=== PATIENT | male | born 1945 | race Caucasian/White ===

== ENCOUNTER 2019-12-27 06:57 | Outpatient (CLI) | payer MEDICARE, SELFPAY ==
--- NOTE | 2019-12-27 08:30 | CT_ITS ---
WS: [id number] CT CHEST TECHNIQUE: Noncontrast CT of the chest with coronal and sagittal reformatted images. CLINICAL INFORMATION: multiple pulmonary nodules COMPARISON: May 17, 2019 DLP: 547.[address] scans at [facility] use at least one of these dose optimization techniques: automat ed exposure control; mA and/or kV adjustment per patient size (includes targeted exams where dose is matched to clinical indication); or iterative reconstruction. FINDINGS: Again seen are several noncalcified pulmonary nodules the largest in the right lower lobe laterally m easuring 5 mm. This is unchanged. Additional smaller satellite nodule measuring 3 mm. Additional tiny noncalcified nodules in the right upper lobe measuring 3 mm. A few stable subpleural nodules in the left upper lobe. Pleural plaques. Calcified granuloma left lower lobe. Tiny noncalcified right hilar nodule and left upper lobe nodule. 7 mm low-attenuation left thyroid nodule. Calcified right hilar no de. Adrenal glands are normal. Splenic granulomas. Cholecystectomy clips. Small esophageal hiatal hernia. CT/CT chest wo con [id number] IMPRESSION: 1. Multiple stable noncalcified pulmonary nodules the largest in the right low er lobe laterally measuring 5 mm. Recommend 12 month follow-up. 2. Subpleural nodules and pleural plaques in the left upper lobe are stable. 3. No mediastinal or hilar lymphadenopathy. 4. Mild chronic emphysematous changes. 5. Cholecystectomy clips. 6. Stable 7 mm left thyroid nodule.
--- NOTE | 2019-12-27 10:15 | US_ITS ---
WS: [id number] ULTRASOUND THYROID TECHNIQUE: Ultrasound of the thyroid. CLINICAL INFORMATION: left thyroid nodule COMPARISON: None. FINDINGS: Thyroid: Right and left thyroid lobes are normal in size and echotexture. Complex cystic and solid nodule left thyroid measuring 1.9 x 1.1 x 1.2 CM. Associated vascularity. A few Incidental tiny hypoechoic likely cystic nodules right thyroid. Right thyroid lobe: 4.7 cm x 1.4 cm x 1.4 cm Left thyroid lobe: 4.6 cm x 1.7 cm x 2.1 cm. Isthmus: 0.4 mm. Cervical lymphadenopathy: None. US/US thyroid 67740 IMPRESSION: 1. Complex 1.9 x 1.1 x 1.2 cm left thyroid nodule with vascularity. Recommend further evaluation with FNA.
== END 2019-12-27 06:58 | disposition home or self-care (01) ==
LOC: CT 07:07
PROVIDERS: Family Provider Family Medicine; PCP Family Medicine; Visit Provider Family Medicine
DX: J43.9 Emphysema, unspecified (principal); E04.1 Nontoxic single thyroid nodule; R91.8 Other nonspecific abnormal finding of lung field
CPT/HCPCS: 71250; 76536

== ENCOUNTER 2020-03-27 20:03 | Emergency (ER) | payer MEDICARE, SELFPAY ==
[2020-03-27 20:15] VITALS: BP 158/87; PULSE 69; RESP 20; TEMP 36.8; O2SAT 96; BMI 21.5
--- NOTE | 2020-03-27 20:30 | ED_ITS ---
HPI - Male Genitourinary General: Chief complaint: General Medical Stated complaint: groin pain Time Seen by Provider: 03/27/20 20:15 Source: patient Mode of arrival: ambulatory Limitations: no limitations History of Present Illness: HPI Narrative: Patient is a very nice 74-year-old gentleman who presents to ED today with a complaint of left groin pain over the past 4 to 5 days. He states pain seems to be getting progressively worse. States last night he was barely able to sleep due to discomfort. Patient tells me he is not having any urinary symptoms. When asked he does complain of some left testicular pain but has not noticed any swelling or redness. He states pain does not seem to move down into his lower extremity and has not noticed any color or temperature changes there. He is not having any numbness/tingling/changes in sensation of his lower extremity. Patient has been told previously he has bilateral inguinal hernias. He has not noticed any masses/bulges to the area. Has not noticed any overlying redness or heat. He has no abdominal pain, nausea, vomiting, changes in bowel movements. He is still passing gas. Associated symptoms: Deny dysuria, nausea, urinary incontinence or vomiting Review of Systems General: Reports: 10 or more systems reviewed and unremarkable except in HPI and below Const: Denies: fever(s) or chills Card: Denies: chest pain Resp: Denies: dyspnea GI: Reports: abdominal pain (L groin pain) and other (pt still passing gas); Denies: nausea, vomiting, diarrhea, constipation, change in bowel habits, change in stool character, hematochezia or melena : Reports: testicular pain (left); Denies: flank pain, difficulty urinating, dysuria, urinary frequency, urinary urgency, urinary hesitancy, urinary incontinence, genital lesions, penile discharge, testicular mass or scrotal swelling Musc: Denies: neck pain, back pain, extremity pain, extremity swelling, joint pain, joint swelling, joint redness, joint warmth, muscle cramps, muscle weakness or decrease in muscle mass Skin/Breast: Denies: rash Neuro: Denies: numbness in extremities, weakness in extremities or sensory changes PFS ED PFSH: Medical History (Updated 03/27/20 @ 23:13 by CAROLINE Szymanski) Bilateral inguinal hernia GERD (gastroesophageal reflux disease) Hiatal hernia Pulmonary nodules/lesions, multiple Thyroid nodule Surgical History (Updated 12/13/19 @ 10:17 by Callie Phoenix DO) History of cholecystectomy Family History Other Diabetes Social History Smoking and tobacco status: never smoked Alcohol intake: current Alcohol intake frequency: holidays/special occasions only Physical Exam 2 Const: COMMON NORMALS: no acute distress, average body habitus, patient oriented x3, no limitations, healthy appearing, alert and well nourished Resp: COMMON NORMALS: normal respiratory effort and clear to auscultation bilaterally AUSCULTATION: clear to auscultation bilaterally Cardio: COMMON NORMALS: regular rate and regular rhythm RATE: regular rate RHYTHM: regular rhythm GI: COMMON NORMALS: Normal to inspection, nondistended, normoactive bowel sounds present, Soft to palpation and No hepatosplenomegaly present AUSCULTATION: Yes normoactive bowel sounds PALPATION: Yes Soft to palpation, Yes Tenderness to palpation present (GI) (TTP L groin) and Yes No hepatosplenomegaly present OTHER: does appear to have mild swelling just medial to groin consistent with inguinal hernia; this does not seem to worsen with valsalva but does seem to increase with pt standing; no peritonitis; no overlying redness/warm; L testicle is tender to palpation but no redness, warmth, or swelling appreciated : COMMON NORMALS: Yes no CVA tenderness BLADDER/KIDNEY EXAM: Yes no CVA tenderness Back/Pelvis: COMMON NORMALS: no CVA tenderness Extremity: COMMON NORMALS: normal to inspection, full ROM, capillary refill normal, no joint enlargement, no clubbing, cyanosis or edema and no calf tenderness NARRATIVE EXTREMITY EXAM: pts sensory to L LE is intact; femoral/DP/PT pulses intact and equal bilaterally; extremities are equal temp and color GENERAL: Yes normal exam except as noted Neuro: COMMON NORMALS: patient oriented x3 SENSORIUM/ORIENTATION: Yes alert Skin: COMMON NORMALS: no rashes or lesions noted GENERAL SKIN EXAM: no rashes or lesions noted Course Vital Signs: Vital signs: Vital Signs Temperature 98.3 F 03/27/20 20:15 Pulse Rate 67 03/27/20 22:29 Respiratory Rate 18 03/27/20 22:29 Blood Pressure 134/72 03/27/20 22:29 Pulse Oximetry 98 03/27/20 22:29 MDM - Male MDM Narrative: Medical decision making narrative: pt with L inguinal hernia; there is no evidence at this time for incarcerated or strangulated bowel; pts white count and lactate are normal; normal vitals; he is defecating and passing gas normally; will have CM set him up with general surgery this week for discussion on elective repair; strict return to ED precautions given regarding re-evaluation for worsening pain or obstructive symptoms Lab Data: Labs: Lab Results 03/27/20 03/27/20 03/27/20 Range/Units 20:45 20:45 20:45 WBC 4.5 (4.0-10.0) 10^3/ uL RBC 4.47 (4.1-5.3) 10^6/u L Hgb 14.5 (11.7-16.6) g/dL Hct 43.9 (42.0-52.0) % MCV 98.2 H (80-94) fL MCH 32.4 (28.0-34.0) pg MCHC 33.0 (30.0-36.0) g/dL RDW 13.5 (12.1-15.1) % Plt Count 204 (130-400) 10^3/c mm MPV 9.2 (7.4-10.4) fL Neut % (Auto) 59.4 % Lymph % (Auto) 26.8 % [place] % (Auto) 8.8 % Eos % (Auto) 4.4 % Baso % (Auto) 0.4 % Neut # (Auto) 2.7 (1.8-7.7) 10^3/u L Lymph # (Auto) 1.2 (0.8-4.8) 10^3/u L [place] # (Auto) 0.4 (0.2-0.9) 10^3/u L Eos # (Auto) 0.2 (0.0-0.8) 10^3/u L Baso # (Auto) 0.0 (0.0-0.1) 10^3/u L Nucleated RBC % (a uto) 0 % Nucleated RBCs # 0.0 /100WBC Sodium 139 (136-145) mmol/L Potassium 4.6 (3.5-5.1) mmol/L Chloride 103 (98-107) mmol/L Carbon Dioxide 24 (22-29) mmol/L Anion Gap 16.6 (5-19) BUN 22 (8-23) mg/dL Creatinine 1.2 (0.7-1.2) mg/dL Glucose 107 (65-115) mg/dL Calculated Osmolal ity 285 (285-295) mOsm/k g Lactate 1.0 (0.5-2.2) mmol/L Calcium 9.9 (8.5-10.5) mg/dL Total Bilirubin 0.5 (0.15-1.2) mg/dL AST 27 (0-40) U/L ALT 30 (0-41) U/L Alkaline Phosphata se 73 (40-130) IU/L Total Protein 7.1 (6.6-8.7) g/dL Albumin 4.2 (3.5-5.2) g/dL Globulin 2.9 (1.3-4.6) g/dL Imaging Data: US scrotum : Radiologist's impression: [place] [address] Ultrasound Report Signed Patient: Mickey Camacho Unit #: [id number] : 1945 Age/Sex: 74 / M ADM Date: 03/27/20 Loc: ER Room/Bed: Attending Dr: Ordering Provider/Ordering MD: Eliana Swann Date of Service: 03/27/20 Procedure(s): US scrotum [id number] Accession Number(s): [id number] Report Number: [id number] PROCEDURE INFORMATION: Exam: US Scrotum Exam date and time: 03/27/2020 9:36 PM Age: 74 years old Clinical indication: Groin pain and scrotum pain; Additional info: L testicular pain/l groin pain TECHNIQUE: Imaging protocol: Real-time ultrasound of the scrotum and contents with color Doppler and image documentation. COMPARISON: No relevant prior studies available. FINDINGS: Right testicle: Normal. No mass. No torsion. Normal vascular flow. Left testicle: Normal. No mass. No torsion. Normal vascular flow. Epididymides: Normal. Scrotum: Small left varicocele. Other findings: Left inguinal canal appears to contain some herniated bowel with some surrounding fluid without dilation. US/US scrotum [id number] IMPRESSION: 1. Testicles appear within normal limits bilaterally. 2. Small left varicocele. 3. Left inguinal canal appears to contain some herniated bowel with some surrounding fluid without dilation. Dictated By: Kirt Gonzalez MD Signed By: Kirt Gonzalez MD Signed Date/Time: 03/27/202147 DD/ 47 CT Abd/Pel: Radiologist's impression: [place] [address] CT Scan Report Signed Patient: Mickey Camacho Unit #: [id number] : 1945 Age/Sex: 74 / M ADM Date: 03/27/20 Loc: ER Room/Bed: Attending Dr: Ordering Provider/Ordering MD: Eliana Swann Date of Service: 03/27/20 Procedure(s): CT abdomen pelvis w con* [id number] Accession Number(s): [id number] Report Number: [id number] PROCEDURE INFORMATION: Exam: CT Abdomen And Pelvis With Contrast Exam date and time: 03/27/2020 9:16 PM Age: 74 years old Clinical indication: Abdominal pain; Localized; Other: Left groin; Prior surgery; Surgery type: Gb; Additional info: L inguinal pain/hernia TECHNIQUE: Imaging protocol: Computed tomography of the abdomen and pelvis with intravenous contrast. Radiation optimization: All CT scans at this facility use at least one of these dose optimization techniques: automated exposure control; mA and/or kV adjustment per patient size (includes targeted exams where dose is matched to clinical indication); or iterative reconstruction. Contrast material: VISI 320; Contrast volume: 95 ml; Contrast route: INTRAVENOUS (IV); COMPARISON: No relevant prior studies available. RADIATION DOSE METRICS: Total DLP (mGy-cm): 602.25 FINDINGS: Left lower lobe benign calcified granuloma Liver: Normal. No mass. Gallbladder and bile ducts: Cholecystectomy. Pancreas: Normal. No ductal dilation. Spleen: Normal. No splenomegaly. Adrenals: Normal. No mass. Kidneys and ureters: Left kidney benign cyst, negative for follow-up. Stomach and bowel: Constipation. Appendix: No evidence of appendicitis. Intraperitoneal space: Unremarkable. No free air. No significant fluid collection. Vasculature: Unremarkable. No abdominal aortic aneurysm. Lymph nodes: Unremarkable. No enlarged lymph nodes. Bladder: Unremarkable as visualized. Reproductive: Prostate gland enlarged. Bones/joints: Unremarkable. No acute fracture. Soft tissues: Unremarkable. CT/CT abdomen pelvis w con* [id number] IMPRESSION: 1. Negative for acute inflammatory process in the abdomen or pelvis 2. Cholecystectomy. 3. Constipation. 4. Prostate gland enlarged. 5. Left kidney benign cyst, negative for follow-up. Radiation Dose CTDIVOL = (mGy): DLP = 602.25 (mGy-cm) Dictated By: Kirt Gonzalez MD Signed By: Kirt Gonzalez MD Signed Date/Time: 03/27/202248 DD/ 46 Discharge Plan Discharge Patient Disposition: Home, Self-Care Clinical Impression: Inguinal hernia, left Condition: Stable Prescriptions: New hydrocodone-acetaminophen 5-325 mg tablet 1 tab PO Q6H PRN (Reason: pain) Qty: 14 RF: 0 No Action famotidine [Pepcid] 20 mg tablet 20 mg PO DAILY RF: 0 Multiple Vitamins Tablet 1 tab PO DAILY RF: 0 Calcium 500 500 mg calcium (1,250 mg) Tablet 500 mg PO DAILY RF: 0 magnesium 200 mg Tablet 200 mg PO DAILY RF: 0 Discharge Orders: Discharge Order (Routine); Ordered 03/27/20 Ordered By: Eliana Swann Referrals: Supriya Torres DO [Primary Care Provider] - Patient Instructions: Inguinal Hernia, Inguinal Hernia (ED) Activity Restrictions/Additional Instructions: As discussed case management will contact you tomorrow to set you up with an appointment for general surgery. Please return to the emergency department for worsening pain, inability to have a bowel movement or pass gas, vomiting, fe vers, or any other concerns you may have. 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
[2020-03-27 20:57] LABS: Basophils % 0.4 %; Eosinophils # 0.2 10^3/uL (0.0-0.8); Eosinophils % 4.4 %; Hematocrit 43.9 % (42.0-52.0); Hemoglobin 14.5 g/dL (11.7-16.6); Lymphocytes # 1.2 10^3/uL (0.8-4.8); Lymphocytes % 26.8 %; Mean Corpuscular Hemoglobin 32.4 pg (28.0-34.0); Mean Corpuscular Volume 98.2 fL (80-94); Mean Platelet Volume 9.2 fL (7.4-10.4); Monocytes # 0.4 10^3/uL (0.2-0.9); Monocytes % 8.8 %; Neutrophils # 2.7 10^3/uL (1.8-7.7); Neutrophils % 59.4 %; Nucleated Red Blood Cells % 0 %; Platelet Count 204 10^3/cmm (130-400); Red Blood Count 4.47 10^6/uL (4.1-5.3); Red Cell Distribution Width 13.5 % (12.1-15.1); White Blood Count 4.5 10^3/uL (4.0-10.0)
[2020-03-27 21:13] LABS: Alanine Aminotransferase 30 U/L (0-41); Albumin Level 4.2 g/dL (3.5-5.2); Alkaline Phosphatase 73 IU/L (40-130); Anion Gap 16.6 (5-19); Aspartate Amino Transferase 27 U/L (0-40); Blood Urea Nitrogen 22 mg/dL (8-23); Calcium 9.9 mg/dL (8.5-10.5); Carbon Dioxide 24 mmol/L (22-29); Chloride 103 mmol/L (98-107); Globulin 2.9 g/dL (1.3-4.6); Glucose 107 mg/dL (65-115); Osmolality Calculated 285 mOsm/kg (285-295); Potassium 4.6 mmol/L (3.5-5.1); Sodium 139 mmol/L (136-145); Total Bilirubin 0.5 mg/dL (0.15-1.2); Total Protein 7.1 g/dL (6.6-8.7)
[2020-03-27] MEDS: iodixanol 320 mg/mL 100mL Btl IV (22:22)
[2020-03-27 22:29] VITALS: BP 134/72; PULSE 67; RESP 18; O2SAT 98
[2020-03-28] MEDS: HYDROcodone-acetaminophen 5-325 mg Tablet 1 TAB PO (00:36)
--- NOTE | 2020-03-28 00:36 | PC.NURSE ---
Med given for Pt. to take home per provider request
[2020-03-28 00:37] VITALS: BP 138/81; PULSE 82; RESP 18; O2SAT 95
--- NOTE | 2020-03-28 10:57 | DCPLANNER ---
renewals manager had message to schedule a follow up appointment for patient with general surgery. renewals manager called [facility], spoke with Kait, gave clinic patients information. renewals manager was told that patients information would be printed and reviewed. Clinic will call patient with appointment information.
--- NOTE | 2020-03-29 08:56 | DCPLANNER ---
Patient had an appointment scheduled for 03.28.20 with [facility], patient did attend the appointment.
== END 2020-03-28 00:40 | disposition home or self-care (01) ==
PROVIDERS: Emergency Provider Physician Assistant; PCP Family Medicine
DX: K40.90 Unilateral inguinal hernia, without obstruction or gangrene, not specified as recurrent (principal)
CPT/HCPCS: 12345; 36415; 74177; 76870; 80053; 83605; 85025; 96374; 96375; 99281; 99282; 99283; J2060; J2270; Q9967

== ENCOUNTER 2020-03-28 03:54 | Emergency (ER) | payer MEDICARE, SELFPAY ==
[2020-03-28 04:39] VITALS: BP 129/81; PULSE 72; RESP 16; TEMP 36.6; O2SAT 97; BMI 22.1
[2020-03-28 04:49] VITALS: BP 134/79; PULSE 70; RESP 16; O2SAT 95
--- NOTE | 2020-03-28 04:54 | W.ED.GENADLT ---
HPI - General Adult General: Chief complaint: General Medical Stated complaint: groin pain Time Seen by Provider: 03/28/20 04:53 Source: patient Mode of arrival: ambulatory Limitations: no limitations History of Present Illness: HPI narrative: 74-year-old male who was seen earlier today and diagnosed with a left inguinal hernia. He states he had pain for 2 days pain got worse after he left here. He states his pain is currently a 6 out of 10. He states worse with palpation. Patient denies any vomiting or fevers. CT scan of his abdomen earlier was normal. Associated symptoms: Deny chest pain, dyspnea, headache(s) or rash Review of Systems Const: Denies: fever(s), chills, body aches or change in appetite Eyes: Denies: blurry vision or eye discomfort ENMT: Denies: throat pain or dental pain Card: Denies: chest pain Resp: Denies: dyspnea GI: Reports: abdominal pain : Denies: dysuria Musc: Denies: neck pain or back pain Skin/Breast: Denies: rash Neuro: Denies: headache(s) Psych: Denies: depression Tone/Lymph: Denies: easy bruising All/Imm: Denies: urticaria PFSH ED PFSH: Medical History Bilateral inguinal hernia GERD (gastroesophageal reflux disease) Hiatal hernia Pulmonary nodules/lesions, multiple Thyroid nodule Surgical History History of cholecystectomy Family History Other Diabetes Social History Smoking and tobacco status: never smoked Alcohol intake: current Alcohol intake frequency: holidays/special occasions only Physical Exam Const: COMMON NORMALS: no acute distress, patient oriented x3 and healthy appearing HENMT: COMMON NORMALS: normocephalic and atraumatic HEAD & SCALP: normocephalic and atraumatic Eye: COMMON NORMALS: Equal, round and reactive pupils present and EOMs intact bilaterally PUPIL: Yes Equal, round and reactive pupils present Neck/C-Spine: COMMON NORMALS: full ROM and supple Chest: COMMONS NORMALS: normal inspection of the chest and normal palpation of entire chest wall Resp: COMMON NORMALS: normal respiratory effort, No retractions, No use of accessory muscles and clear to auscultation bilaterally AUSCULTATION: clear to auscultation bilaterally Cardio: COMMON NORMALS: regular rate, regular rhythm and No murmurs present (Cardio) RATE: regular rate RHYTHM: regular rhythm GI: COMMON NORMALS: Normal to inspection, nondistended, normoactive bowel sounds present, Soft to palpation, non-tender and no masses PALPATION: Yes Soft to palpation : OTHER: hernia to left inguinal with tenderness Extremity: COMMON NORMALS: normal to inspection and full ROM Neuro: COMMON NORMALS: patient oriented x3, moves all extremities and no focal motor deficits Psych: COMMON NORMALS: mental status grossly normal, Normal thought process present and cooperative THOUGHT PROCESS: Normal thought process present Skin: COMMON NORMALS: no rashes or lesions noted and no wounds GENERAL SKIN EXAM: no rashes or lesions noted Course Vital Signs: Vital signs: Vital Signs Temperature 97.8 F 03/28/20 04:39 Pulse Rate 70 03/28/20 04:49 Respiratory Rate 20 H 03/28/20 05:09 Blood Pressure 134/79 03/28/20 04:49 Pulse Oximetry 95 03/28/20 04:49 MDM - General Adult MDM Narrative: Medical decision making narrative: Patient presents with inguinal hernia that is able to reduce. Patient has no abdominal tenderness and no signs of incarceration. Patient's white count is normal. I spoke to surgeon on-call Dr. Garcia recommended follow-up with him later today and will set up follow-up. Patient is stable for discharge and return to ER if worsening. He understands and agrees to plan. Lab Data: Labs: Lab Results 03/28/20 03/28/20 Range/Units 05:00 05:00 WBC 5.7 (4.0-10.0) 10^3/ uL RBC 4.48 (4.1-5.3) 10^6/u L Hgb 14.7 (11.7-16.6) g/dL Hct 43.2 (42.0-52.0) % MCV 96.4 H (80-94) fL MCH 32.8 (28.0-34.0) pg MCHC 34.0 (30.0-36.0) g/dL RDW 13.5 (12.1-15.1) % Plt Count 200 (130-400) 10^3/c mm MPV 9.3 (7.4-10.4) fL Neut % (Auto) 75.2 % Lymph % (Auto) 14.7 % [place] % (Auto) 8.1 % Eos % (Auto) 1.6 % Baso % (Auto) 0.2 % Neut # (Auto) 4.3 (1.8-7.7) 10^3/u L Lymph # (Auto) 0.8 (0.8-4.8) 10^3/u L [place] # (Auto) 0.5 (0.2-0.9) 10^3/u L Eos # (Auto) 0.1 (0.0-0.8) 10^3/u L Baso # (Auto) 0.0 (0.0-0.1) 10^3/u L Nucleated RBC % (a uto) 0 % Nucleated RBCs # 0.0 /100WBC Sodium 140 (136-145) mmol/L Potassium 4.3 (3.5-5.1) mmol/L Chloride 105 (98-107) mmol/L Carbon Dioxide 23 (22-29) mmol/L Anion Gap 16.3 (5-19) BUN 23 (8-23) mg/dL Creatinine 0.9 (0.7-1.2) mg/dL Glucose 104 (65-115) mg/dL Calculated Osmolal ity 287 (285-295) mOsm/k g Calcium 9.9 (8.5-10.5) mg/dL Total Bilirubin 0.7 (0.15-1.2) mg/dL AST 24 (0-40) U/L ALT 28 (0-41) U/L Alkaline Phosphata se 66 (40-130) IU/L Total Protein 6.7 (6.6-8.7) g/dL Albumin 4.3 (3.5-5.2) g/dL Globulin 2.4 (1.3-4.6) g/dL Discharge Plan Discharge Patient Disposition: Home, Self-Care Clinical Impression: Inguinal hernia, left Condition: Stable Prescriptions: No Action famotidine [Pepcid] 20 mg tablet 20 mg PO DAILY RF: 0 Multiple Vitamins Tablet 1 tab PO DAILY RF: 0 Calcium 500 500 mg calcium (1,250 mg) Tablet 500 mg PO DAILY RF: 0 magnesium 200 mg Tablet 200 mg PO DAILY RF: 0 hydrocodone-acetaminophen 5-325 mg tablet 1 tab PO Q6H PRN (Reason: pain) Qty: 14 RF: 0 Discharge Orders: Discharge Order (Routine); Ordered 03/28/20 Ordered By: Jeniffer Naranjo Referrals: Khurram Garcia MD [Physician] - 1-3 days Callie Phoenix DO [Primary Care Provider] - Discharge Diet: Advance as tolerated Discharge Activity: Resume usual activity Patient Instructions: Inguinal Hernia (ED) Coding Level of Care Code ED Community Service Director for Chg Fwd Exam Comprehensive
--- NOTE | 2020-03-28 05:04 | PC.NURSE ---
Pain located in groin area, very tender in his testicles
[2020-03-28 05:09] VITALS: RESP 20
[2020-03-28] MEDS: morphine 4 mg/mL SDV 1 mL IVP (05:09)
[2020-03-28] MEDS: LORazepam 2 mg/mL INJ 1 mL 1 MG IVP (05:10)
[2020-03-28 05:17] LABS: Basophils % 0.2 %; Eosinophils # 0.1 10^3/uL (0.0-0.8); Eosinophils % 1.6 %; Hematocrit 43.2 % (42.0-52.0); Hemoglobin 14.7 g/dL (11.7-16.6); Lymphocytes # 0.8 10^3/uL (0.8-4.8); Lymphocytes % 14.7 %; Mean Corpuscular Hemoglobin 32.8 pg (28.0-34.0); Mean Corpuscular Volume 96.4 fL (80-94); Mean Platelet Volume 9.3 fL (7.4-10.4); Monocytes # 0.5 10^3/uL (0.2-0.9); Monocytes % 8.1 %; Neutrophils # 4.3 10^3/uL (1.8-7.7); Neutrophils % 75.2 %; Nucleated Red Blood Cells % 0 %; Platelet Count 200 10^3/cmm (130-400); Red Blood Count 4.48 10^6/uL (4.1-5.3); Red Cell Distribution Width 13.5 % (12.1-15.1); White Blood Count 5.7 10^3/uL (4.0-10.0)
[2020-03-28 05:40] LABS: Alanine Aminotransferase 28 U/L (0-41); Albumin Level 4.3 g/dL (3.5-5.2); Alkaline Phosphatase 66 IU/L (40-130); Anion Gap 16.3 (5-19); Aspartate Amino Transferase 24 U/L (0-40); Blood Urea Nitrogen 23 mg/dL (8-23); Calcium 9.9 mg/dL (8.5-10.5); Carbon Dioxide 23 mmol/L (22-29); Chloride 105 mmol/L (98-107); Creatinine Clr Calc Pharmacy 70.9251; Globulin 2.4 g/dL (1.3-4.6); Glucose 104 mg/dL (65-115); Osmolality Calculated 287 mOsm/kg (285-295); Potassium 4.3 mmol/L (3.5-5.1); Sodium 140 mmol/L (136-145); Total Bilirubin 0.7 mg/dL (0.15-1.2); Total Protein 6.7 g/dL (6.6-8.7)
[2020-03-28 06:02] VITALS: BP 118/69; PULSE 65; RESP 16; TEMP 36.6; O2SAT 95
--- NOTE | 2020-03-29 10:51 | DCPLANNER ---
late entry - hospice case manager had message to schedule a follow up appointment for patient with general surgery. gas well drilling manager called [facility], spoke with Kait, gave clinic patients appointment information. gas well drilling manager was told that patients information would be printed and reviewed. Patient had an appointment on 03.28.20, patient did attend the appointment.
== END 2020-03-28 06:05 | disposition home or self-care (01) ==
PROVIDERS: Emergency Provider Emergency Medicine; PCP Family Medicine
DX: K40.90 Unilateral inguinal hernia, without obstruction or gangrene, not specified as recurrent (principal)
CPT/HCPCS: 12345; 80053; 85025; 96374; 96375; 99282; 99283; J2060; J2270

== ENCOUNTER 2020-03-29 05:50 | Day surgery (SDC) | payer MEDICARE, SELFPAY ==
[2020-03-28 14:26] VITALS: BMI 22.1
[2020-03-29] VITALS (9 sets, daily range): BP systolic 133–157; BP diastolic 69–89; PULSE 64–71; RESP 13–19; TEMP 36.3–36.8; O2SAT 94–100
[2020-03-29] MEDS: sodium chloride 0.9% 1,000 ML 30 ML IV (06:22)
--- NOTE | 2020-03-29 06:23 | ECG_ITS ---
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 Measurements Intervals Sikes Rate: 65 P: 66 W[place]: 185 QRS: 46 QRSD: 93 T: 46 QT: 399 QTc: 417 Interpretive Statements SINUS RHYTHM Compared to ECG 12/08/2016 23:26:58 No significant changes Electronically Signed On 03-29-2020 17:12:27 CDT by Lynsey Hernandez M.D. [email or web address]
--- NOTE | 2020-03-29 06:45 | ANES.PREANE2 ---
Pre-Anesthetic Assessment Pre-Anesthetic Assessment: Height/Weight: Height 1.75 m Weight 68.039 kg Temp Pulse Resp BP Pulse Ox 98.1 F 67 18 134/77 96 03/29/20 06:16 03/29/20 06:16 03/29/20 06:16 03/29/20 06:16 03/29/20 06:16 Preop Diagnosis: Left inguinal hernia Proposed Procedure: Operation Date: 03/29/20 07:00 Proposed Procedures p Laparoscopic Inguinal Hernia Repair/possible open 80677 K40.90(Left) - Khurram Garcia MD Familial anesthetic complications: None Was Beta Diana taken within 24 hours: N/A Last intake: Intake Last Liquid Date 03/29/20 Last Liquid Time 01:00 Last Solid Date 03/28/20 Last Solid Time 15:00 Social: Social History: No alcohol and No tobacco Exam: Pre-Anes Outpt Exam: alert, oriented x 3, clear to auscultation bilaterally and regular rate & rhythm Airway: Cervical ROM: WNL MP: 2 Dentition: False Pulmonary: Pulmonary: None reported CV/HEM: CV/HEM: None reported : : None reported Hepatic: Hepatic: None reported GI: GI: GERD and Hiatus hernia Metabolic: Metabolic: Thyroid (nodule) Musc/skel: Musc/skel: None reported Neuropsych: Neuropsych: None reported Anesthetic Plan: ASA status: 2 Anesthesia: General Risk of > 500 ml blood loss (7ml/kg in children): No Meds/Allergies Current Medications: Current Medications Generic Name Dose Route Start Last Admin Trade Name Freq PRN Reason Stop Dose Admin Sodium Chloride 1,000 mls @ 30 ml s/hr 03/29/20 06:00 03/29/20 06:22 Sodium Chloride 0.9% IV 03/30/20 05:59 30 mls/hr .Q24H DIONI Administration PFSH Anesthesia PFSH: Medical History GERD (gastroesophageal reflux disease) Hiatal hernia Pulmonary nodules/lesions, multiple Thyroid nodule Surgical History H/O circumcision H/O oral surgery History of cholecystectomy Family History Other Diabetes Denies family history of Anesthesia complication Bleeding disorder Social History Smoking and tobacco status: never smoked Alcohol intake: current Alcohol intake frequency: holidays/special occasions only Household members: spouse Marital status: Current occupational status: employed History of recent travel: No Data Anesthesia Cardiac Studies: No Data to Display
--- NOTE | 2020-03-29 06:52 | W.PM.OPSUD ---
Surgery/Procedure H&P Update DATE OF PROCEDURE: March 29, 2020 DATE H&P PERFORMED: 03/28/20 H&P UPDATE INFORMATION: I have reviewed H&P completed within last 30 days, I have examined patient prior to procedure and No changes to prior documentation PREOP DIAGNOSIS: Left inguinal hernia PLANNED PROCEDURE: Operation Date: 03/29/20 07:00 Proposed Procedures p Laparoscopic Inguinal Hernia Repair/possible open 67822 K40.90(Left) - Khurram Garcia MD
--- NOTE | 2020-03-29 08:05 | P.OP_ITS ---
Operative Report Date of procedure: March 29, 2020 Pre-op Diagnosis: Left inguinal hernia Post-op Diagnosis: Left reducible indirect inguinal hernia Procedure Done: Laparoscopic total extraperitoneal repair of left inguinal hernia with ultraPro 15 x 10 cm mesh Specimens removed/disposition: None Pathology: none sent Surgeon: Khurram Garcia Anesthesia: General Estimated blood loss (mL): 10 Condition: stable Disposition: PACU Procedure: The patient was taken to the operating room. After IV antibiotic was administered, the abdomen was prepped and draped in a sterile manner. Using a 15 blade, a 1.0 cm transverse incision was made infraumbilically on the left side. Subcutaneous tissue was divided using electrocautery and the anterior rectus sheath divided using an 11 blade. The rectus muscle was retracted laterally and the extraperitoneal space identified. A 11 mm port was placed and 12 mm of pneumoperitoneum was created. A 10 mm 30? scope was introduced and the retrorectus space was opened using the camera up to the pubic symphysis and 5 mm ports were placed in the midline, one 2-fingerbreadths above the pubic symphysis and the other midway between these two ports under direct visualization. Blunt dissection was carried out to open up the tissue in the midline and to the pubic symphysis, which was identified. The dissection was then carried laterally whe re the iliopubic tract was identified. There was no femoral, obturator or direct hernia noted. The inferior epigastric artery was identified and dissection was carried posterior to it and laterally, the space was opened up to the level of the umbilicus superior to the anterior superior iliac spine. I then proceeded to dissect out the spermatic cord and the indirect hernial sac was reduced . 15 x 10cm Ultrapro mesh was rolled and introduced through the 10 mm port and then rolled laterally and apposed well against the abdominal wall to cover the myopectineal orifice completely. 10 Cc of 0.5% Marcaine was infiltrated into the preperitoneal space. The extraperitoneal space was desufflated under direct visualization to ensure no slippage of hernial sac under the mesh. All ports were removed, the anterior rectus fascia at the infraumbilical port closed using figure of eight 0 Vicryl sutures, subcutaneous tissue approximated using 3-0 Vicryl sutures and skin at all three port sites were closed using running subcuticular 4-0 Monocryl sutures and Dermabond. 10 mL of 0.5% Marcaine was infiltrated at the port sites. The patient was stable throughout the procedure.
--- NOTE | 2020-03-29 08:19 | SUR.PHASEI ---
0814 PATIENT TO PACU FROM OR. RR EVEN AND UNLABORED. PLACED ON SIMPLE MASK AT 8L, SPO2 100%. INCISIONS TO ABDOMEN, CDI CLOSED WITH EXOFIN. SCROTAL SUPPORT IN PLACE.
[2020-03-29] MEDS: fentaNYL 50 mcg/mL INJ 2mL IVP (08:22)
--- NOTE | 2020-03-29 08:40 | SUR.PHASEI ---
0837 PATIENT TO OPS AT THIS TIME. DENIES NAUSEA, TOLERATING ICE CHIPS. INCISIONS TO ABDOMEN, CDI.
[2020-03-29] MEDS: HYDROcodone-acetaminophen 5-325 mg Tablet 1 TAB PO (08:55)
== END 2020-03-29 09:20 | disposition home or self-care (01) ==
PROVIDERS: PCP Family Medicine; Visit Provider Surgery
PROC: (CPT 49650; principal; 2020-03-29 07:00)
DX: K46.9 Unspecified abdominal hernia without obstruction or gangrene (principal); K21.9 Gastro-esophageal reflux disease without esophagitis
CPT/HCPCS: 49650; 12345; 93005; J0690; J2704; J3010; J3490; J7030

== ENCOUNTER → 2020-05-05 08:36 | Outpatient (BNVA) | payer MEDICARE, SELFPAY | PROVIDERS: PCP Family Medicine; Visit Provider Internal Medicine | DX: E04.1 Nontoxic single thyroid nodule (principal) | CPT/HCPCS: 36415; 84439; 84443; 99203 ==

== ENCOUNTER 2020-05-05 10:07 | Outpatient (CLI) | payer MEDICARE, SELFPAY ==
[2020-05-05 14:01] LABS: Thyroid Stimulating Hormone 3.41 uIU/mL (0.27-4.20)
== END 2020-05-05 10:08 | disposition home or self-care (01) ==
LOC: LAB 10:11
PROVIDERS: PCP Family Medicine; Visit Provider Internal Medicine
DX: E04.1 Nontoxic single thyroid nodule (principal)
CPT/HCPCS: 36415; 84439; 84443

== ENCOUNTER → 2020-06-05 09:40 | Outpatient (BNVA) | payer MEDICARE, SELFPAY | PROVIDERS: PCP Family Medicine; Visit Provider Internal Medicine | DX: E04.1 Nontoxic single thyroid nodule (principal); R91.8 Other nonspecific abnormal finding of lung field | CPT/HCPCS: 99214 ==

== ENCOUNTER → 2020-12-04 08:09 | Outpatient (BNVA) | payer MEDICARE, SELFPAY | PROVIDERS: PCP Family Medicine; Visit Provider Internal Medicine | DX: E04.1 Nontoxic single thyroid nodule (principal) | CPT/HCPCS: 99214 ==

== ENCOUNTER 2020-12-27 08:12 | Outpatient (CLI) | payer MEDICARE, SELFPAY ==
--- NOTE | 2020-12-27 11:30 | CT_ITS ---
WS: [id number] CT CHEST TECHNIQUE: Noncontrast CT of the chest with coronal and sagittal reformatted images. CLINICAL INFORMATION: f/u pulmonary nodules COMPARISON: CT December 27, 2019 DLP: 742.[address] scans at [facility] use at least one of these dose optimization techniques: automat ed exposure control; mA and/or kV adjustment per patient size (includes targeted exams where dose is matched to clinical indication); or iterative reconstruction. FINDINGS: Again seen are several noncalcified pulmonary nodules the largest in the right lower lobe laterally m easuring 5 mm. These are unchanged since December 27, 2019 Additional smaller satellite nodule measuring 3 mm is stable. Additional tiny noncalcified nodule in the right upper lobe measuring 3 mm. A few stable subpleural nodules in the left upper lobe. Associated Pleural plaques. Calcified granulo ma left lower lobe. 7 mm low-attenuation left thyroid nodule. No mediastinal or hilar lymphadenopathy. No axillary lymphadenopathy. Adrenal glands are normal. Sple treasure granulomas. Cholecystectomy clips. Small esophageal hiatal hernia. CT/CT chest wo con [id number] IMPRESSION: 1. Multiple stable noncalcified pulmonary nodules the largest in the right lowe r lobe laterally measuring 5 mm. Recommend 12 month follow-up. 2. Subpleural nodules and pleural plaques in the left upper lobe are stable. 3. No mediastinal or hilar lymphadenopathy. 4. Stable 7 mm left thyroid nodule.
== END 2020-12-27 08:13 | disposition home or self-care (01) ==
LOC: RADWPI 08:25
PROVIDERS: PCP Family Medicine; Visit Provider Family Medicine
DX: R91.8 Other nonspecific abnormal finding of lung field (principal); E04.1 Nontoxic single thyroid nodule
CPT/HCPCS: 71250

== ENCOUNTER → 2021-01-16 07:13 | Outpatient (BNVA) | payer MEDICARE, SELFPAY | PROVIDERS: PCP Family Medicine; Visit Provider Family Medicine | DX: Z13.6 Encounter for screening for cardiovascular disorders (principal); Z00.00 Encounter for general adult medical examination without abnormal findings; R35.1 Nocturia | CPT/HCPCS: 80053; 80061; 84153; 85025 ==

== ENCOUNTER → 2021-12-03 08:23 | Outpatient (BNVA) | payer MEDICARE, SELFPAY | PROVIDERS: PCP Family Medicine; Visit Provider Internal Medicine | DX: E04.1 Nontoxic single thyroid nodule (principal) | CPT/HCPCS: 99213; 99214 ==

== ENCOUNTER → 2022-01-07 09:18 | Outpatient (BNVA) | payer MEDICARE, SELFPAY | PROVIDERS: PCP Family Medicine; Visit Provider Family Medicine | DX: R35.1 Nocturia (principal); Z13.6 Encounter for screening for cardiovascular disorders | CPT/HCPCS: 80053; 80061; 84153; 85025 ==

== ENCOUNTER 2022-01-28 08:18 | Outpatient (CLI) | payer MEDICARE, SELFPAY ==
--- NOTE | 2022-01-28 09:00 | CT_ITS ---
WS: [id number] CT CHEST WITHOUT INTRAVENOUS CONTRAST HISTORY: pulmonary nodule TECHNIQUE: Contiguous 5 mm axial imaging performed on the thorax. Coronal and sagittal reformats are submitted. All CT scans at [facility] use at least one of these dose optimization techniques: automated exposure control; mA and/or kV adjustment per patient size (includes targeted exams where dose is matched to clinical indication); or iterative reconstruction. CONTRAST: None DLP: 799.50 mGy.cm COMPARISON: 12/27/2020, 05/28/2020 and 05/17/2019 Lungs and central airway: Lungs are hyperexpanded. Numerous bilateral calcified and noncalcified pulm onary nodules are reidentified. The largest noncalcified nodule in the RIGHT lower lobe measures 5 mm and stable since at least 05/17/2019. There are no new or increasing noncalcified pulmonary nodules. Pleura: Again noted is the pleural thickening and calcification in the LEFT upper lobe which is stabl e. Heart and pericardium: Normal size heart with no pericardial effusion. Mediastinum and rachael: No mediastinum or hilar adenopathy. Vessels: Normal size pulmonary artery. There are a few scattered calcifications in the qawalangin coronar y arteries. Mild ectasia thoracic aorta. Chest wall and lower neck: Slight increase in size of the LEFT inferior thyroid nodule now 11 mm. Thi s nodule was previously evaluated for possible biopsy. Biopsy not performed due to the marked increas ed vascularity. Nodule remains suspicious due to its solid appearance. Upper abdomen: Prior cholecystectomy. Large hiatal hernia. Osseous structures: No destructive process. CT/CT chest wo con [id number] IMPRESSION: 1. Long-term stability of calcified and noncalcified pulmonary nodules. No leonardo nge since 05/17/2019. No additional workup is necessary for these nodules. 2. Emphysema. 3. LEFT thyroid nodule is similar to prior thyroid ultrasound from 12/27/2019. 4. Stable LEFT upper lobe pleural plaque and calcification.
== END 2022-01-28 08:19 | disposition home or self-care (01) ==
PROVIDERS: PCP Family Medicine; Visit Provider Family Medicine
DX: R91.8 Other nonspecific abnormal finding of lung field (principal); J43.9 Emphysema, unspecified; E04.1 Nontoxic single thyroid nodule; J94.8 Other specified pleural conditions
CPT/HCPCS: 71250

== ENCOUNTER 2022-04-22 09:06 | Day surgery (SDC) | payer MEDICARE, SELFPAY ==
[2022-04-18 12:31] VITALS: BMI 22.1
[2022-04-22 09:41] VITALS: BP 169/84; PULSE 85; RESP 18; TEMP 36.4; O2SAT 97
[2022-04-22] MEDS: sodium chloride 0.9% 1,000 ML 30 ML IV (09:45)
--- NOTE | 2022-04-22 09:47 | P.HP_ITS ---
Same Day Surgery H&P Indication for Procedure/HPI DATE OF PROCEDURE: April 22, 2022 CHIEF COMPLAINT/INDICATIONFOR SURGICAL PROCEDURE: Change in bowel habit PREOP DIAGNOSIS: Change in BH PLANNED PROCEDURE: Operation Date: 04/22/22 10:45 Proposed Procedures p Colonoscopy 69601,K59.01(Not Applicable) - Arsenio Tello MD Medications/Allergies* Home Medications Medication Instructions Recorded Confirmed Type multivitamin (Multiple Vitamins) 1 tab PO DAILY 03/27/20 04/22/22 History famotidine 20 mg tablet (Pepcid) 20 mg PO DAILY tab 12/03/21 04/22/22 History psyllium husk 3.4 gram/5.4 gram 1 tbsp PO BID 04/04/22 04/22/22 History oral powder (Metamucil) Allergies/Adverse Reactions Allergy/AdvReac Type Severity Reaction Status Date / Time ragweed pollen Allergy sinus Verified 04/22/22 09:39 congestion Current Medications: Generic Name Dose Route Start Last Admin Trade Name Freq PRN Reason Stop Dose Admin Sodium Chloride 1,000 mls @ 30 mls/hr 04/22/22 09:45 04/22/22 09:45 Sodium Chloride 0.9% IV 30 mls/hr .Q24H DIONI Administration Pertinent History/Comorbid Conditions* Medical History (Updated 03/15/22 @ 12:55 by Callie Phoenix DO) GERD (gastroesophageal reflux disease) Hiatal hernia Pulmonary nodules/lesions, multiple Thyroid nodule Surgical History (Updated 04/12/20 @ 18:02 by Khurram Garcia MD) H/O circumcision H/O oral surgery History of cholecystectomy Status post left inguinal hernia repair (03/29/20) Family History (Updated 03/28/20 @ 12:56 by Leigh Minor LPN) Diabetes Denies family history of Anesthesia complication Bleeding disorder Social History Smoking and tobacco status: never smoked Alcohol intake: current Alcohol intake frequency: holidays/special occasions only Household members: spouse Marital status: Current occupational status: employed History of recent travel: No Pertinent Exam Findings alert, oriented x 3, clear to auscultation bilaterally, regular rate & rhythm, operative site marked and procedure specific exam findings Recommendations Surgery/Procedure today Coding Level of Care Code Acute Telegraph Office Manager for Barbara Cadet
--- NOTE | 2022-04-22 09:58 | ANES.PREANE2 ---
Pre-Anesthetic Assessment Height/Weight: Height 1.75 m Weight 68.039 kg Temp Pulse Resp BP Pulse Ox 97.5 F L 85 18 169/84 97 04/22/22 09:41 04/22/22 09:41 04/22/22 09:41 04/22/22 09:41 04/22/22 09:41 Preop Diagnosis: Change in Operation Date: 04/22/22 10:45 Proposed Procedures p Colonoscopy 98558,K59.01(Not Applicable) - Arsenio Tello MD Familial anesthetic complications: none Was Beta Diana taken within 24 hours: N/A Was Clonidine taken within 24 hours: N/A Last intake: Intake Last Liquid Date 04/21/22 Last Liquid Time 19:30 Last Solid Date 04/20/22 Social No alcohol and No tobacco Exam alert, oriented x 3, clear to auscultation bilaterally and regular rate & rhythm Airway Mallampati: Class II Dentition: false GI Gastroesophageal Reflux Disease and Hiatal Hernia Metabolic Thyroid Disease Anesthetic Plan ASA status: 2 Anesthesia: MAC Risk of > 500 ml blood loss (7ml/kg in children): No Medications/Allergies Home Medications Medication Instructions Recorded Confirmed Last Taken Type multivitamin (Multiple Vitamins) 1 tab PO DAILY 03/27/20 04/22/22 03/27/20 History famotidine 20 mg tablet (Pepcid) 20 mg PO DAILY tab 12/03/21 04/22/22 04/21/22 23:00 History lactulose 10 gram/15 mL oral 10 g (15 mL) PO BID PRN 30 Days 03/15/22 04/22/22 Unknown Rx solution #946 ml psyllium husk 3.4 gram/5.4 gram 1 tbsp PO BID 04/04/22 04/22/22 Unknown History oral powder (Metamucil) Allergies Allergy/AdvReac Type Severity Reaction Status Date / Time ragweed pollen Allergy sinus Verified 04/22/22 09:39 congestion Current Medications Generic Name Dose Route Start Last Admin Trade Name Freq PRN Reason Stop Dose Admin Sodium Chloride 1,000 mls @ 30 mls/hr 04/22/22 09:45 04/22/22 09:45 Sodium Chloride 0.9% IV 30 mls/hr .Q24H DIONI Administration PFSH Anesthesia Medical History GERD (gastroesophageal reflux disease) Hiatal hernia Pulmonary nodules/lesions, multiple Thyroid nodule Surgical History H/O circumcision H/O oral surgery History of cholecystectomy Status post left inguinal hernia repair (03/29/20) Family History Other Diabetes Denies family history of Anesthesia complication Bleeding disorder Social History (Updated 04/04/22 @ 09:29 by Danny Fairbanks) Smoking and tobacco status: never smoked Alcohol intake: current Alcohol intake frequency: holidays/special occasions only Household members: spouse Marital status: Current occupational status: employed History of recent travel: No Data Anesthesia Cardiac Studies: No Data to Display
[2022-04-22 11:49] VITALS: BP 103/59; PULSE 71; RESP 16; TEMP 36.1; O2SAT 97
--- NOTE | 2022-04-22 11:50 | ANE.PACU2 ---
Inpatient post-anesthesia follow up: Airway intact: Yes Vital signs: Temperature 97.0 F Pulse Rate 71 Respiratory Rate 16 Blood Pressure 103/59 Pulse Oximetry 97 Oxygen Delivery Me thod Room Air Oxygen Flow Rate Fraction of Inspir ed Oxygen Hydration adequate: Yes Nausea and vomiting: No Pain level: 1 Mental status: Baseline
[2022-04-22 12:15] VITALS: BP 128/81; PULSE 68; RESP 16; O2SAT 97
== END 2022-04-22 12:56 | disposition home or self-care (01) ==
PROVIDERS: PCP Family Medicine; Visit Provider Internal Medicine
PROC: 0DJD8ZZ Inspection of Lower Intestinal Tract, Via Natural or Artificial Opening Endoscopic (ICD-10-PCS; CPT 45378; principal; 2022-04-22 10:45)
DX: R19.4 Change in bowel habit (principal); K21.9 Gastro-esophageal reflux disease without esophagitis
CPT/HCPCS: 45378; J2704; J7030

== ENCOUNTER 2022-10-15 12:04 | Outpatient (CLI) | payer MEDICARE, SELFPAY ==
--- NOTE | 2022-10-15 12:45 | USCV_ITS ---
Mickey Camacho Age: 77 Gender: M : 1945 Exam Date: 10/15/2022 12:41 Ordering Phys: Callie Phoenix DO Technologist: ERENDIRA Exam Location: [facility] [place] Indication: Bruit Risk Factors: Previous Vascular Surgery: Right Brachial BP: / Left Brachial BP: / Right Left Velocity (cm/s) Spectral Plaque Velocity (cm/s) Spectral Plaque Syst/Diast Broadening Syst/Diast Broadening 92.60/ 16.50 Prox CCA 101.40/ 25.40 98.10/ 26.50 Mid CCA 99.20 / 24.30 101.40/19.80 Distal CCA 105.80/ 30.90 71.70/ 12.10 Prox ICA 84.60 / 25.60 94.80/ 20.90 Mid ICA 101.70/ 29.90 113.60/22.10 Distal ICA 58.10 / 21.40 112.50 ECA 149.10 1.12 ICA/CCA 0.96 Vertebral 44.70/ 10.50 cm/s 56.40/ 20.50 cm/s Subclavian 169.3 160.0 0 0 CONCLUSIONS Right ICA stenosis <50%. Moderate atheromatous plaque right carotid bulb/ICA. Left ICA stenosis <50%. Moderate atheromatous plaque left carotid bulb/ICA. Normal antegrade Doppler flow noted in the right vertebral artery. Normal antegrade Doppler flow noted in the left vertebral artery. Bayron Montez MD (Electronically Signed) Final Date: 15 October 2022 17:33 S
== END 2022-10-15 12:05 | disposition home or self-care (01) ==
LOC: RAD 12:07
PROVIDERS: PCP Family Medicine; Visit Provider Family Medicine
DX: R09.89 Other specified symptoms and signs involving the circulatory and respiratory systems (principal); I65.23 Occlusion and stenosis of bilateral carotid arteries
CPT/HCPCS: 93880

== ENCOUNTER 2022-10-17 09:55 | Outpatient (CLI) | payer MEDICARE, SELFPAY ==
--- NOTE | 2022-10-17 10:09 | XR_ITS ---
WS: [id number] XR cervical spine 3V* [id number] REASON FOR EXAM: chronic neck pain FINDINGS: Normal odontoid and cervical vertebral bodies. Moderate narrowing of the C4-C5 disc space with small anterior and uncinate osteophytes. Moderate narrowing of the C5-C6 disc space with small anterior and uncinate osteophytes. Moderate narrowing of the C6-C7 disc space with small anterior and uncinate osteophytes. Mild to moderate degenerative changes in the facet joints. 1.5 mm of anterolisthesis of C5 in relation to C4. 1.5 mm of anterolisthesis of C3 in relation to C4. XR/XR cervical spine 3V* [id number] IMPRESSION: Degenerative spondylosis of the cervical spine as above.
== END 2022-10-17 09:56 | disposition home or self-care (01) ==
PROVIDERS: PCP Family Medicine; Visit Provider Family Medicine
DX: G89.29 Other chronic pain (principal); M47.812 Spondylosis without myelopathy or radiculopathy, cervical region
CPT/HCPCS: 72040

== ENCOUNTER → 2022-10-29 08:53 | Outpatient (BNVA) | payer MEDICARE, SELFPAY | PROVIDERS: PCP Family Medicine; Referring Provider Family Medicine; Visit Provider Physician Assistant | DX: M47.812 Spondylosis without myelopathy or radiculopathy, cervical region (principal); M75.41 Impingement syndrome of right shoulder; M54.2 Cervicalgia | CPT/HCPCS: 72040; 99203 ==

== ENCOUNTER → 2022-12-03 08:00 | Outpatient (BNVA) | payer MEDICARE, SELFPAY | PROVIDERS: PCP Family Medicine; Visit Provider Internal Medicine | DX: M54.2 Cervicalgia (principal); E04.1 Nontoxic single thyroid nodule; K59.01 Slow transit constipation | CPT/HCPCS: 99213; 99214 ==

== ENCOUNTER 2022-12-04 13:48 | Outpatient (CLI) | payer MEDICARE, SELFPAY ==
--- NOTE | 2022-12-04 14:30 | MR_ITS ---
WS: [id number] MRI CERVICAL SPINE NONCONTRAST TECHNIQUE: Sagittal T1, T2 and STIR imaging. Axial T2, gradient, and fiesta imaging. CLINICAL INFORMATION: Neck pain COMPARISON: None. FINDINGS: Straightening of the normal cervical lordosis. Cord signal is normal. No high-grade central canal azeem rowing. Slight anterolisthesis C3 on C4. Periarticular edema involving the RIGHT C2-C3 and C3-C4 xuan culating facets consistent with synovitis. Small RIGHT facet effusion at C2-C3. C2-C3: No significant disc bulging. Mild to moderate facet arthropathy. Spinal canal and foramen are patent. C3-C4: Slight anterolisthesis. Mild disc bulging and osteophytic ridging. Moderate facet arthropathy with RIGHT facet synovitis. Small amount of periarticular edema. Mild bilateral bony foraminal narrow ing. C4-C5: Slight retrolisthesis. Disc osteophyte complex with endplate ridging. Spinal canal is patent. Moderate facet arthropathy. Mild bilateral bony foraminal narrowing. C5-C6: Disc osteophyte complex with endplate ridging. Moderate facet arthropathy. Moderate LEFT and m ild RIGHT bony foraminal narrowing. C6-C7: Disc osteophyte complex with endplate ridging. Slight effacement of the ventral thecal sac. Mi ld to moderate bilateral bony foraminal narrowing. Moderate facet arthropathy. Spinal canal is patent . C7-T1: Mild facet arthropathy. Mild LEFT and no significant RIGHT foraminal narrowing. T2 hyperintense lesions LEFT thyroid nodule measuring 13 mm MR/MR cervical spin wo con* [id number] IMPRESSION: 1. Straightening of the normal cervical lordosis. No high-grade central canal stenosis. Cord signal is normal. 2. Moderate facet arthropathy RIGHT C2-C3 and C3-C4 with periarticular edema c ompatible with degenerative or inflammatory synovitis. Small RIGHT C2-C3 facet effusion. 3. Mild to moderate bony foraminal narrowing mainly due to facet arthropathy a nd osteophytic ridging more prominent at bilateral C4-C5, LEFT C5-C6, and bilat eral C6-C7 worse in the LEFT. Mild LEFT C7-T1 bony foraminal narrowing. 4. Moderate facet arthropathy C3-C4 C4-C5 C5-C6 and C6-C7.
== END 2022-12-04 13:49 | disposition home or self-care (01) ==
LOC: RAD 13:52
PROVIDERS: PCP Family Medicine; Visit Provider Physician Assistant
DX: G89.29 Other chronic pain (principal); M43.02 Spondylolysis, cervical region
CPT/HCPCS: 72141

== ENCOUNTER → 2022-12-19 14:30 | Outpatient (BNVA) | payer MEDICARE, SELFPAY | PROVIDERS: PCP Family Medicine; Visit Provider Physician Assistant | DX: M47.812 Spondylosis without myelopathy or radiculopathy, cervical region (principal) | CPT/HCPCS: 99213 ==

== ENCOUNTER → 2023-01-07 10:15 | Outpatient (BNVA) | payer MEDICARE, SELFPAY | PROVIDERS: PCP Family Medicine; Visit Provider Anesthesiology Pain Medicine | DX: M47.812 Spondylosis without myelopathy or radiculopathy, cervical region (principal); M75.41 Impingement syndrome of right shoulder | CPT/HCPCS: 99204 ==

== ENCOUNTER → 2023-01-09 08:46 | Outpatient (BNVA) | payer MEDICARE, SELFPAY | PROVIDERS: PCP Family Medicine; Visit Provider Family Medicine | DX: Z13.6 Encounter for screening for cardiovascular disorders (principal); Z12.5 Encounter for screening for malignant neoplasm of prostate; R35.1 Nocturia | CPT/HCPCS: 80053; 80061; 84153; 84439; 84443; 84480; 85025 ==

== ENCOUNTER → 2023-03-19 15:33 | Outpatient (BNVA) | payer MEDICARE, SELFPAY | PROVIDERS: PCP Family Medicine; Visit Provider Dermatology | DX: L57.0 Actinic keratosis (principal); L82.1 Other seborrheic keratosis; L57.8 Other skin changes due to chronic exposure to nonionizing radiation; L81.4 Other melanin hyperpigmentation; Z85.828 Personal history of other malignant neoplasm of skin | CPT/HCPCS: 17000; 17003; 99213 ==

== ENCOUNTER → 2023-05-06 08:04 | Outpatient (BNVA) | payer MEDICARE, SELFPAY | PROVIDERS: PCP Family Medicine; Visit Provider Nurse Practitioner Family | DX: L81.4 Other melanin hyperpigmentation (principal) | CPT/HCPCS: 17000; 99213 ==

== ENCOUNTER 2023-06-20 08:30 | Emergency (ER) | payer MEDICARE, SELFPAY ==
[2023-06-20 08:42] VITALS: BP 160/86; PULSE 80; RESP 18; O2SAT 97; BMI 22.1
--- NOTE | 2023-06-20 08:49 | CT_ITS ---
WS: [id number] CT ABDOMEN AND PELVIS WITH CONTRAST HISTORY: abd pain TECHNIQUE: Imaging performed of the abdomen and pelvis with IV contrast. Single phase imaging of the abdomen. Coronal and sagittal reformats are submitted. All CT scans at [facility] use at [address] one of these dose optimization techniques: automated exposure control; mA and/or kV adjustment per patient size (includes targeted exams where dose is matched to clinical indication); or iterative re construction. IV CONTRAST: Omnipaque 350; 100 mL IV. Oral contrast: No DLP: 443.69 mGy COMPARISON: 03/27/2020 Lower thorax: Benign granuloma LEFT lung base. Heart is normal size. Small hiatal hernia. Liver/biliary system: Normal size with no intrahepatic dilatation. Gallbladder: Status post cholecystectomy. Pancreas: Normal size pancreas and pancreatic duct. No adjacent inflammation. Spleen: Granulomata. Normal size. Adrenal glands: Normal. Right kidney: Normal. Left kidney: Normal size kidney. Lobulated cyst lower pole 2.7 x 1.7 cm is stable. No obstruction. Th e LEFT ureter is mildly prominent and dilated but there is no obstructive process identified. Ureter enters the urinary bladder very close to the enlarged prostate gland. Aorta: Normal. Lymphadenopathy: None. Free fluid: None. GI tract: Nondistended stomach. Polypoid like mass in the proximal duodenum measures 1.7 cm. This may represent a small polyp. This was also probably present in 2019. There is no obstruction. There is i ncreasing fluid in the mid to distal small bowel. No transition point identified and at this time the re is no obstruction. The appendix is normal. No colon obstruction. Abdominal wall: Fat containing umbilical hernia. Pelvis: Normally distended urinary bladder. There is mild bladder wall thickening but this is diffuse and symmetric. Prostate gland is enlarged encroaching into the bladder. Prostate calcifications. Pat ent bilateral inguinal canals containing fat. Bones: Mild degenerative disc disease at L2-3. No lumbar spine fracture. IMPRESSION: 1. Mild fluid distention of the mid to distal small bowel. There is no obstruction at this time. Thi s may represent a mild ileus or early developing obstruction. 2. Normal appendix. 3. No free fluid or free air. 4. Prior cholecystectomy. 5. Polypoid mass in the proximal duodenum. This was also present in 2019. May be a benign duodenal p olyp. Upper endoscopy would be necessary to further evaluate. 6. The LEFT ureter is very mildly dilated but there is no obstructing calcification or mass identifi ed. Ureter enters the urinary bladder close to the enlarged prostate. Continued evaluation of patient 's renal function and renal status recommended. This may be a very early impending ureteral obstructi on.
--- NOTE | 2023-06-20 08:57 | ED_ITS ---
HPI - Abdominal Pain General: Chief Complaint: Abdominal Pain Stated Complaint: Loren sent for abd pain Time Seen by Provider: 06/20/23 08:45 Source: patient Mode of arrival: ambulatory Limitations: no limitations History of Present Illness: 77-year-old male states been having some lower abdominal pain for the last 2 to 3 weeks. Patient was seen in urgent care and sent over here to rule out appen dicitis. He has had some tenderness in his right lower quadrant he also has a history of umbilical hernia has had some pain there he denies any fevers denies any vomiting or diarrhea denies any severe pain at this time his pain is actually a 1 out of 10 currently. Associated Symptoms: Denies chills, diarrhea, dysuria, fever(s), nausea and vomiting Review of Systems Const: Denies: fever(s) or chills Eyes: Denies: eye discomfort ENMT: Denies: throat pain or dental pain Card: Denies: chest pain Resp: Denies: dyspnea GI: Reports: abdominal pain; Denies: nausea, vomiting or diarrhea : Denies: dysuria Musc: Denies: neck pain or back pain Neuro: Denies: headache(s) [facility] PFSH: Medical History (Updated 06/20/23 @ 11:00 by Jeniffer Naranjo MD) GERD (gastroesophageal reflux disease) Hiatal hernia Pulmonary nodules/lesions, multiple Thyroid nodule Surgical History H/O circumcision H/O oral surgery History of cholecystectomy Status post left inguinal hernia repair (03/29/20) Family History Other Diabetes Denies family history of Anesthesia complication Bleeding disorder Social History Smoking and tobacco status: never smoked Alcohol intake: current Alcohol intake frequency: holidays/special occasions only Substance/Drug Use: never Household members: spouse Marital status: Current occupational status: employed Physical Exam Const: COMMON NORMALS: no acute distress, patient oriented x3 and healthy appearing HENMT: COMMON NORMALS: normocephalic and atraumatic HEAD & SCALP: normocephalic and atraumatic Eye: COMMON NORMALS: conjunctivae normal CONJUNCTIVA: Yes conjunctivae normal Neck/C-Spine: COMMON NORMALS: full ROM and supple Chest: COMMONS NORMALS: normal inspection of the chest Resp: COMMON NORMALS: normal respiratory effort, No retractions, No use of accessory muscles and clear to auscultation bilaterally AUSCULTATION: clear to auscultation bilaterally Cardio: COMMON NORMALS: regular rate, regular rhythm and No murmurs present (Cardio) RATE: regular rate RHYTHM: regular rhythm GI: COMMON NORMALS: Normal to inspection, nondistended, normoactive bowel sounds present, Soft to palpation and no masses PALPATION: Yes Soft to palpation OTHER: Mild tenderness over umbilicus Extremity: COMMON NORMALS: normal to inspection and full ROM Neuro: COMMON NORMALS: patient oriented x3, moves all extremities and no focal motor deficits Psych: COMMON NORMALS: mental status grossly normal, Normal thought process present and cooperative THOUGHT PROCESS: Normal thought process present Skin: COMMON NORMALS: no rashes or lesions noted and no wounds GENERAL SKIN EXAM: no rashes or lesions noted Course Vital Signs: Vital signs: Vital Signs Pulse Rate 76 06/20/23 11:15 Respiratory Rate 18 06/20/23 11:15 Blood Pressure 160/86 06/20/23 08:42 Pulse Oximetry 95 06/20/23 11:15 Oxygen Delivery Me thod Room Air 06/20/23 08:42 MDM - Abdominal Pain Medical Decision Making Patient presents here with abdominal pain CT showed no acute findings I did inform him of the finding of his duodenum and that he needs an outpatient EGD his pain here is improved he is stable for discharge he is to follow-up with PCP and return if worsening. Lab Data 06/20/23 08:56 06/20/23 08:56 Labs/Radiology: Laboratory Results WBC 4.84 10^3/uL (3.29-11.43) 06/20/23 08:56 RBC 4.44 10^6/uL (3.85-5.65) 06/20/23 08:56 Hgb 14.50 g/dL (11.27-16.99) 06/20/23 08:56 Hct 43.0 % (37-53) 06/20/23 08:56 MCV 96.8 fl (82-101) 06/20/23 08:56 MCH 32.7 pg (27-33) 06/20/23 08:56 MCHC 33.7 g/dL (30-55) 06/20/23 08:56 RDW 13.4 % (12.1-15.1) 06/20/23 08:56 Plt Count 190 10^3/cmm (157-399) 06/20/23 08:56 MPV 9.0 fL (7.4-10.4) 06/20/23 08:56 Neut % (Auto) 66.3 % 06/20/23 08:56 Lymph % (Auto) 21.7 % 06/20/23 08:56 Blair % (Auto) 9.7 % 06/20/23 08:56 Eos % (Auto) 1.7 % 06/20/23 08:56 Baso % (Auto) 0.2 % 06/20/23 08:56 Neut # (Auto) 3.21 10^3/uL (1.8-7.7) 06/20/23 08:56 Lymph # (Auto) 1.1 10^3/uL (0.8-4.8) 06/20/23 08:56 Blair # (Auto) 0.5 10^3/uL (0.2-0.9) 06/20/23 08:56 Eos # (Auto) 0.1 10^3/uL (0.0-0.8) 06/20/23 08:56 Baso # (Auto) 0.0 10^3/uL (0.0-0.1) 06/20/23 08:56 Nucleated RBC % (auto) 0 % 06/20/23 08:56 Nucleated RBCs # 0.0 /100WBC 06/20/23 08:56 Sodium 136 mmol/L (136-145) 06/20/23 08:56 Potassium 4.4 mmol/L (3.5-5.1) 06/20/23 08:56 Chloride 102 mmol/L (98-107) 06/20/23 08:56 Carbon Dioxide 26 mmol/L (22-29) 06/20/23 08:56 Anion Gap 12.4 (5-19) 06/20/23 08:56 BUN 22 mg/dL (8-23) 06/20/23 08:56 Creatinine 0.9 mg/dL (0.7-1.2) 06/20/23 08:56 GFR Calculation Not Reportable 06/20/23 08:56 Glucose 89 mg/dL (65-115) 06/20/23 08:56 Calculated Osmolality 285 mOsm/kg (285-295) 06/20/23 08:56 Calcium 9.0 mg/dL (8.5-10.5) 06/20/23 08:56 Total Bilirubin 0.4 mg/dL (0.15-1.2) 06/20/23 08:56 AST 23 U/L (0-40) 06/20/23 08:56 ALT 21 U/L (0-41) 06/20/23 08:56 Alkaline Phosphatase 80 U/L (40-130) 06/20/23 08:56 Total Protein 7.0 g/dL (6.6-8.7) 06/20/23 08:56 Albumin 4.1 g/dL (3.5-5.2) 06/20/23 08:56 Globulin 2.9 g/dL (1.3-4.6) 06/20/23 08:56 Lipase 35 U/L (13-60) 06/20/23 08:56 Urine Color Yellow (Yellow) 06/20/23 10:25 Urine Appearance Clear (CLEAR) 06/20/23 10:25 Urine pH 5 (5-7) 06/20/23 10:25 Ur Specific Prentiss 1.000 (1.005-1.030) L 06/20/23 10:25 Urine Protein Neg (Negative) 06/20/23 10:25 Urine Glucose (UA) Norm (Normal) 06/20/23 10:25 Urine Ketones Negative (Negative) 06/20/23 10:25 Urine Blood Neg (Negative) 06/20/23 10:25 Urine Nitrate Negative (Negative) 06/20/23 10:25 Urine Bilirubin Neg (Negative) 06/20/23 10:25 Urine Urobilinogen Norm mg/dL (Negative) 06/20/23 10:25 Ur Leukocyte Esterase Negative (Negative) 06/20/23 10:25 All radiology interpretation(s) finalized by discharge Discharge Plan Discharge Patient Disposition: Home Clinical Impression: Abdominal pain Condition: Stable Prescriptions: New dicyclomine 20 mg tablet 20 mg PO TID PRN (Reason: abdominal pain) Qty: 14 0RF No Action famotidine [Pepcid] 20 mg tablet 20 mg PO DAILY Metamucil 3.4 gram/5.4 gram powder 1 tbsp PO DAILY Rx Instructions: mix into at least 8 oz of water or juice before administering ibuprofen [IBU-200] 200 mg tablet 200 mg PO Q6H PRN (Reason: Pain) loratadine [Claritin] 10 mg tablet 10 mg PO DAILY magnesium citrate 100 mg tablet 100 mg PO BID multivitamin [Multiple Vitamins] Tablet 1 tab PO DAILY Discharge Orders: Discharge ED (Routine); Ordered 06/20/23 Ordered By: Jeniffer Naranjo Referrals: Callie Phoenix DO [Primary Care Provider] - 1-3 days Discharge Diet: Advance as tolerated Discharge Activity: Resume usual activity Patient Instructions: Abdominal Pain (ED) Coding Level of Care Code ED [employer] for Barbara Cadet
[2023-06-20 09:01] LABS: Basophils % 0.2 %; Eosinophils # 0.1 10^3/uL (0.0-0.8); Eosinophils % 1.7 %; Lymphocytes # 1.1 10^3/uL (0.8-4.8); Lymphocytes % 21.7 %; Mean Corpuscular HGB Conc 33.7 g/dL (30-55); Mean Corpuscular Hemoglobin 32.7 pg (27-33); Mean Corpuscular Volume 96.8 fl (82-101); Monocytes # 0.5 10^3/uL (0.2-0.9); Monocytes % 9.7 %; Neutrophils # 3.21 10^3/uL (1.8-7.7); Neutrophils % 66.3 %; Nucleated Red Blood Cells % 0 %; Platelet Count 190 10^3/cmm (157-399); Red Blood Count 4.44 10^6/uL (3.85-5.65); Red Cell Distribution Width 13.4 % (12.1-15.1); White Blood Count 4.84 10^3/uL (3.29-11.43)
[2023-06-20 09:17] LABS: Alanine Aminotransferase 21 U/L (0-41); Albumin Level 4.1 g/dL (3.5-5.2); Alkaline Phosphatase 80 U/L (40-130); Anion Gap 12.4 (5-19); Aspartate Amino Transferase 23 U/L (0-40); Blood Urea Nitrogen 22 mg/dL (8-23); Carbon Dioxide 26 mmol/L (22-29); Chloride 102 mmol/L (98-107); Globulin 2.9 g/dL (1.3-4.6); Glucose 89 mg/dL (65-115); Lipase 35 U/L (13-60); Osmolality Calculated 285 mOsm/kg (285-295); Potassium 4.4 mmol/L (3.5-5.1); Sodium 136 mmol/L (136-145); Total Bilirubin 0.4 mg/dL (0.15-1.2)
[2023-06-20] MEDS: iohexol 350 mg/mL 500 mL Btl (per mL) IV (10:24)
[2023-06-20 10:35] LABS: Add Urine Microscopic? NO; Charge for UA Resulting for Rev
[2023-06-20 11:14] LABS: Bilirubin Urine Neg (Negative); Blood Urine Neg (Negative); Glucose Urine UA Norm (Normal); Ketones Urine Negative (Negative); Leukocyte Esterase Urine Negative (Negative); Nitrate Urine Negative (Negative); Protein Urine Neg (Negative); Urine Appearance Clear (CLEAR); Urine Color Yellow (Yellow); Urobilinogen Urine Norm (Negative); pH Urine 5 (5-7)
[2023-06-20 11:15] VITALS: PULSE 76; RESP 18; O2SAT 95
--- NOTE | 2023-06-23 08:04 | PC.SOCIAL ---
General Surgery Referral Referral message sent to clinic at this time. Clinic to contact patient with appt date/time.
== END 2023-06-20 11:16 | disposition home or self-care (01) ==
PROVIDERS: Emergency Provider Emergency Medicine; PCP Family Medicine
DX: R10.30 Lower abdominal pain, unspecified (principal)
CPT/HCPCS: 36415; 74177; 80053; 81003; 83690; 85025; 99284; Q9967

== ENCOUNTER → 2023-06-24 11:05 | Outpatient (BNVA) | payer MEDICARE, SELFPAY | PROVIDERS: PCP Family Medicine; Referring Provider Emergency Medicine; Visit Provider Surgery | DX: K31.7 Polyp of stomach and duodenum (principal) | CPT/HCPCS: 99203; 99214 ==

== ENCOUNTER → 2023-08-14 09:27 | Outpatient (BNVA) | payer MEDICARE, SELFPAY | PROVIDERS: PCP Family Medicine; Visit Provider Family Medicine | DX: N40.0 Benign prostatic hyperplasia without lower urinary tract symptoms (principal); R35.1 Nocturia | CPT/HCPCS: 84153 ==

== ENCOUNTER → 2023-11-26 09:15 | Outpatient (BNVA) | payer MEDICARE, SELFPAY | PROVIDERS: PCP Family Medicine; Visit Provider Internal Medicine | DX: E04.1 Nontoxic single thyroid nodule (principal); M54.2 Cervicalgia; E03.8 Other specified hypothyroidism | CPT/HCPCS: 84439; 84443; 99214 ==

== ENCOUNTER 2024-01-19 16:05 | Outpatient (CLI) | payer MEDICARE, SELFPAY ==
--- NOTE | 2024-01-19 17:30 | CT_ITS ---
WS: [id number] CT ABDOMEN AND PELVIS WITH AND WITHOUT CONTRAST HISTORY: RIGHT lower quadrant pain, back pain for several months. TECHNIQUE: Unenhanced 5 mm axial imaging first performed through the abdomen and pelvis. Post contras t imaging through the abdomen and pelvis. Oral contrast has been provided. Sagittal and coronal refo rmats are submitted. All CT scans at [facility] use at least one of these dose optimization t echniques: automated exposure control; mA and/or kV adjustment per patient size (includes targeted ex ams where dose is matched to clinical indication); or iterative reconstruction. CONTRAST: Omnipaque 350; 95 mL IV. DLP: 754.31 mGy.cm COMPARISON: 06/20/2023 Benign granuloma LEFT lung base. Heart is normal size. Small hiatal hernia. Hiatal hernia contains re tained oral contrast. Normal liver. Normal portal vein. Prior cholecystectomy. No bile duct dilatation. Normal size spleen with granulomata. Normal size pancreas. No pancreatitis. There are a few very low attenuation areas within the peripher y of the pancreas which up fatty and unchanged. This may be volume averaging from the adjacent mesent flavio fat. Inseparable from the duodenal C-loop is a mildly prominent pancreatic head. In the duodenum there is a filling defect and wall thickening although no obstruction. Polypoid mass was noted in th is area on the prior study. On the sagittal reformats there is some findings suspicious for possible invasion of the duodenal C-loop. This should be further evaluated. No renal stones or obstruction. Negative RIGHT kidney. Slightly lobulated LEFT renal cyst measures 2. 9 x 2.0 cm. Cyst is from the lower pole of the kidney. No obstruction. Very minimal atherosclerosis a benson. No aneurysm. Diffuse constipation. No GI tract obstruction. No significant diverticular disease. No acute divertic ulitis. The appendix is normal. No ascites or adenopathy. Tiny umbilical hernia contains fat only. Mild bladder wall thickening due to under distention. Prostate gland is mildly encroaching into the b ladder. Central prostate gland calcifications. Inguinal canals are patent bilaterally containing fat only. No herniation of bowel. Slight increase in the lumbar lordosis. No fracture. IMPRESSION: 1. Increased soft tissue inseparable from the pancreatic head and duodenal C-loop. Indeterminate for invasion into the duodenal. Polypoid mass was noted in this location on the prior study from 9/15/20 23. No history of endoscopy follow-up was provided. Recommend upper endoscopy for further evaluation. Differential includes benign or malignant process in the duodenum or extension from the pancreatic h ead. 2. No ascites or adenopathy. 3. Prior cholecystectomy. 4. Normal appendix. 5. Constipation. 6. Patent bilateral inguinal canals containing fat only.
[2024-01-19 17:43] LABS: Blood Urea Nitrogen 11 mg/dL (8-23)
[2024-01-19] MEDS: iohexol 350 mg/mL 500 mL Btl (per mL) IV (17:49)
[2024-01-19] MEDS: iohexol 350 mg/mL 500 mL Btl (per mL) PO (17:50)
== END 2024-01-19 16:06 | disposition home or self-care (01) ==
LOC: RAD 16:05
PROVIDERS: PCP Family Medicine; Visit Provider Family Medicine
DX: R10.31 Right lower quadrant pain (principal)
CPT/HCPCS: 74178; 82565; 84520; Q9967

== ENCOUNTER → 2024-01-28 13:09 | Outpatient (BNVA) | payer MEDICARE, SELFPAY | PROVIDERS: PCP Family Medicine; Visit Provider Surgery | DX: K86.9 Disease of pancreas, unspecified (principal) | CPT/HCPCS: 99214 ==

== ENCOUNTER 2024-02-20 13:53 | Outpatient (CLI) | payer MEDICARE, SELFPAY ==
--- NOTE | 2024-02-20 14:30 | MR_ITS ---
WS: [id number] MRI ABDOMEN WITH AND WITHOUT CONTRAST. COMPARISON: CT 01/19/2024, 06/20/2023 Multiplanar, multisequence imaging is performed with and without contrast. MultiHance 15 mL. Normal appearance of the pancreas. The pancreatic head is closely opposed to the duodenal C-loop but there is no change in signal intensity. On the postcontrast images there is no area of focal enhancem ent or nonenhancement. The pancreatic duct is normal. The duodenal C-loop is normal. There is no intr aluminal mass in the duodenum. Normal size liver and spleen. Prior cholecystectomy. Normal common bile duct. Normal adrenal glands. Kidneys are normal size. Simple cyst with nonenhancement exophytic from the lower pole LEFT kidney me asures 2.4 x 1.4 cm. No ascites or adenopathy. MR/MR abdomen wo/w con* [id number] IMPRESSION: 1. No pancreatic head mass or duodenal mass. There is no abnormal enhancement or persistent soft tissue along the duodenal C-loop as seen on the recent CT. 2. Prior cholecystectomy. 3. No common bile duct dilatation. 4. Simple cyst lower pole LEFT kidney measures 2.4 x 1.4 cm.
[2024-02-20] MEDS: gadobenate dimeglumine 20 mL vial IV (15:09)
== END 2024-02-20 13:54 | disposition home or self-care (01) ==
LOC: RAD 13:55
PROVIDERS: PCP Family Medicine; Visit Provider Surgery
DX: K86.9 Disease of pancreas, unspecified (principal); N28.1 Cyst of kidney, acquired; Z90.49 Acquired absence of other specified parts of digestive tract
CPT/HCPCS: 74183; A9577

== ENCOUNTER → 2024-03-03 10:05 | Outpatient (BNVA) | payer MEDICARE, SELFPAY | PROVIDERS: PCP Family Medicine; Visit Provider Surgery | DX: Z09 Encounter for follow-up examination after completed treatment for conditions other than malignant neoplasm (principal) | CPT/HCPCS: 99213 ==

== ENCOUNTER → 2024-03-18 08:27 | Outpatient (BNVA) | payer MEDICARE, SELFPAY | PROVIDERS: PCP Family Medicine; Visit Provider Nurse Practitioner Family | DX: L82.1 Other seborrheic keratosis (principal); L57.0 Actinic keratosis; L57.8 Other skin changes due to chronic exposure to nonionizing radiation; L81.4 Other melanin hyperpigmentation; D22.5 Melanocytic nevi of trunk; L30.9 Dermatitis, unspecified; D48.5 Neoplasm of uncertain behavior of skin; L40.8 Other psoriasis; Z85.828 Personal history of other malignant neoplasm of skin | CPT/HCPCS: 11104; 17000; 99214 ==

== ENCOUNTER → 2024-04-01 13:17 | Outpatient (BNVA) | payer MEDICARE, SELFPAY | PROVIDERS: PCP Family Medicine; Visit Provider Dermatology | DX: L50.1 Idiopathic urticaria (principal) | CPT/HCPCS: 99214 ==

== ENCOUNTER → 2024-04-07 12:19 | Outpatient (BNVA) | payer MEDICARE, SELFPAY | PROVIDERS: PCP Family Medicine; Visit Provider Dermatology | DX: D03.4 Melanoma in situ of scalp and neck (principal); L50.8 Other urticaria | CPT/HCPCS: 11623; 13121; 99213 ==

== ENCOUNTER 2024-06-01 08:36 | Outpatient (CLI) | payer MEDICARE, SELFPAY ==
[2024-06-01 09:36] LABS: Free T4 Free Thyroxine 1.29 ng/dL (0.82-1.77); Thyroid Stimulating Hormone 3.98 uIU/mL (0.27-4.20)
== END 2024-06-01 08:37 | disposition home or self-care (01) ==
PROVIDERS: PCP Family Medicine Adult Medicine; Visit Provider Internal Medicine
DX: E03.8 Other specified hypothyroidism (principal)
CPT/HCPCS: 36415; 84439; 84443

== ENCOUNTER → 2024-06-08 07:38 | Outpatient (BNVA) | payer MEDICARE, SELFPAY | PROVIDERS: PCP Family Medicine Adult Medicine; Visit Provider Internal Medicine | DX: E04.1 Nontoxic single thyroid nodule (principal); M54.2 Cervicalgia; E03.8 Other specified hypothyroidism | CPT/HCPCS: 99213; 99214 ==

== ENCOUNTER → 2024-07-27 14:57 | Outpatient (BNVA) | payer MEDICARE, SELFPAY | PROVIDERS: PCP Family Medicine Adult Medicine; Visit Provider Dermatology | DX: L82.1 Other seborrheic keratosis (principal); L81.4 Other melanin hyperpigmentation; L57.8 Other skin changes due to chronic exposure to nonionizing radiation; L28.0 Lichen simplex chronicus; L50.8 Other urticaria; Z85.820 Personal history of malignant melanoma of skin | CPT/HCPCS: 99214 ==

== ENCOUNTER → 2024-12-21 10:45 | Outpatient (BNVA) | payer MEDICARE, SELFPAY | PROVIDERS: Family Provider Family Medicine; PCP Family Medicine; Visit Provider Nurse Practitioner Family | DX: L82.1 Other seborrheic keratosis (principal); L81.4 Other melanin hyperpigmentation; X32.XXXA Exposure to sunlight, initial encounter; L57.8 Other skin changes due to chronic exposure to nonionizing radiation; Z85.820 Personal history of malignant melanoma of skin; Z08 Encounter for follow-up examination after completed treatment for malignant neoplasm; Z85.828 Personal history of other malignant neoplasm of skin; L57.0 Actinic keratosis | CPT/HCPCS: 17000; 99213 ==

== ENCOUNTER → 2025-01-21 08:05 | Outpatient (BNVA) | payer MEDICARE, SELFPAY | PROVIDERS: Family Provider Family Medicine; PCP Family Medicine; Visit Provider Family Medicine | DX: E04.1 Nontoxic single thyroid nodule (principal); Z13.6 Encounter for screening for cardiovascular disorders; E03.8 Other specified hypothyroidism | CPT/HCPCS: 80053; 80061; 82607; 84439; 84443; 85025 ==

== ENCOUNTER 2025-06-01 07:24 | Outpatient (CLI) | payer MEDICARE, SELFPAY ==
[2025-06-01 08:43] LABS: Free T4 Free Thyroxine 1.14 ng/dL (0.82-1.77); Thyroid Stimulating Hormone 3.28 uIU/mL (0.27-4.20)
== END 2025-06-01 07:25 | disposition home or self-care (01) ==
PROVIDERS: PCP Family Medicine; Visit Provider Internal Medicine
DX: E03.8 Other specified hypothyroidism (principal)
CPT/HCPCS: 84439; 84443

== ENCOUNTER → 2025-06-10 09:56 | Outpatient (BNVA) | payer MEDICARE, SELFPAY | PROVIDERS: PCP Family Medicine; Visit Provider Internal Medicine | DX: E04.1 Nontoxic single thyroid nodule (principal); M54.2 Cervicalgia; E03.8 Other specified hypothyroidism | CPT/HCPCS: 99214 ==

== ENCOUNTER → 2025-06-23 08:57 | Outpatient (BNVA) | payer MEDICARE, SELFPAY | PROVIDERS: PCP Family Medicine; Visit Provider Nurse Practitioner Family | DX: L50.9 Urticaria, unspecified (principal); Z85.820 Personal history of malignant melanoma of skin; Z08 Encounter for follow-up examination after completed treatment for malignant neoplasm; Z85.828 Personal history of other malignant neoplasm of skin; S40.861A Insect bite (nonvenomous) of right upper arm, initial encounter; X58.XXXA Exposure to other specified factors, initial encounter; L82.0 Inflamed seborrheic keratosis; L29.89 Other pruritus; L53.8 Other specified erythematous conditions; R20.8 Other disturbances of skin sensation; L57.0 Actinic keratosis | CPT/HCPCS: 10120; 17000; 17110; 99213 ==